=== PATIENT | female | born 1975 | race Caucasian/White ===

== ENCOUNTER 2017-06-01 09:20 | Emergency (ER) | payer OTHER ==
[~2017-06-01] VITALS: Ht 172.7 cm; Wt 92.4 kg
[~2017-06-01 09:20] MED LIST: CARV12.52 PO; IBUP-232 PO; LEVO200T4 PO; LISI-515 PO; NORC5TAB PO; ORPH100T99 PO
[2017-06-01 09:27] VITALS: BP 161/93; PULSE 134; RESP 16; TEMP 99.7; O2SAT 98
[2017-06-01] MEDS ORDERED: ZIPR1CAP12 PO (10:20)
--- NOTE | 2017-06-01 10:32 | PD ---
HPI Chief Complaint: Allergic/Adverse Reaction Time Seen by Provider: 10:17 Travel History International Travel<30 days: No Contact w/Intl Traveler<30days: No Traveled to known affect area: No History of Present Illness HPI 42-year-old female came to the emergency room with history of palpitations. Patient was started on Geodon little over a week ago and her symptoms I started since then. Patient has history of bipolar disorder and about 2-3 weeks ago was depressed and had overdosed on her medications. She had told her primary care after she had overdosed about this and she was sent to the therapist. She was started on Geodon at that point. She was tachycardic on the monitor in 1 teens. Patient denies drinking alcohol or doing any illicit drugs. She has been complaining of some chest discomfort since yesterday morning and has been continuous. Patient is not a smoker. She thinks all her symptoms are related to Geodon. Pain is substernal with no radiation. PFSH Past Medical History Narrative Medical List of her past medical, surgical, social and family history is reviewed from the nursing note. Asthma: No Autoimmune Disease: No Blood Disorders: No Heart Rhythm Problems: Yes (BBB) Cancer: No Cardiomyopathy: Yes (2004 POST- CARDIOMYOPATHY /W CHF- RESOLVED) Cardiovascular Problems: Yes (HX OF POST CARDIOMYOPATHY) High Cholesterol: No Chemotherapy: No Chest Pain: No Congestive Heart Failure: Yes COPD: No Diabetes: No Diminished Hearing: No Endocrine: No Glaucoma: No Genitourinary: No Hypertension: Yes Musculoskeletal: No Neurologic: No Psychiatric: No Respiratory: No Myocardial Infarction: No Radiation Therapy: No Thyroid Disease: Yes ?: Not : 1 Para: 1 Past Surgical History AICD: No Appendectomy: Yes Pacemaker: No Tonsillectomy: Yes Other Surgery: Yes (THYROIDECTOMY) Social History Alcohol Use: Yes (1 GLASS WINE WEEKLY) Tobacco Use: No Substance Use: No Allergies-Medications (Allergen,Severity, Reaction): Coded Allergies: pecan nut (Unverified Allergy, Severe, THROAT CLOSES UP, 06/01/17) Comments List of her allergies as reviewed from the nursing note. Reported Meds & Prescriptions Reported Meds & Active Scripts Active Reported Ziprasidone 80 Mg Cap 80 Mg PO DAILY Levothyroxine (Levothyroxine Sodium) 200 Mcg Tab 225 Mcg PO DAILY Carvedilol 12.5 Mg Tab 6.25 Mg PO BID Lisinopril 20 Mg Tab 20 Mg PO DAILY Narrative Medication List of her home medications reviewed from the nursing note. Review of Systems Except as stated in HPI: all other systems reviewed are Neg Physical Exam Narrative GENERAL: Awake, alert, anxious SKIN: Focused skin assessment warm/dry. HEAD: Atraumatic. Normocephalic. EYES: Pupils equal and round. No scleral icterus. No injection or drainage. ENT: No nasal bleeding or discharge. Mucous membranes pink and moist. NECK: Trachea midline. No JVD. CARDIOVASCULAR: Regular rate and rhythm. Tachycardia. No murmur appreciated. RESPIRATORY: No accessory muscle use. Clear to auscultation. Breath sounds equal bilaterally. GASTROINTESTINAL: Abdomen soft, non-tender, nondistended. Hepatic and splenic margins not palpable. MUSCULOSKELETAL: No obvious deformities. No clubbing. No cyanosis. No edema. NEUROLOGICAL: Awake and alert. No obvious cranial nerve deficits. Motor grossly within normal limits. Normal speech. PSYCHIATRIC: Appropriate mood and affect; insight and judgment normal. Data Data Last Documented VS Orders Orders Electrocardiogram (06/01/17 ) Complete Blood Count With Diff (06/01/17 10:37) Basic Metabolic Panel (Bmp) (06/01/17 10:37) Troponin I (06/01/17 10:37) Urinalysis - C+S If Indicated (06/01/17 10:37) Thyroid Stimulating Hormone (06/01/17 10:37) Aspirin Chew (Aspirin Chew) (06/01/17 10:45) Lorazepam (Ativan) (06/01/17 10:45) Packaging Tech / Telemetry MANDY.Q8H (06/01/17 10:37) Urine Culture (06/01/17 10:55) Labs Laboratory Tests Test 06/01/17 10:35 06/01/17 10:55 White Blood Count 7.5 TH/MM3 Red Blood Count 4.62 MIL/MM3 Hemoglobin 13.4 GM/DL Hematocrit 40.4 % Mean Corpuscular Volume 87.4 FL Mean Corpuscular Hemoglobin 28.9 PG Mean Corpuscular Hemoglobin Concent 33.1 % Red Cell Distribution Width 11.9 % Platelet Count 209 TH/MM3 Mean Platelet Volume 7.2 FL Neutrophils (%) (Auto) 79.9 % Lymphocytes (%) (Auto) 12.5 % Monocytes (%) (Auto) 6.1 % Eosinophils (%) (Auto) 0.9 % Basophils (%) (Auto) 0.6 % Neutrophils # (Auto) 6.0 TH/MM3 Lymphocytes # (Auto) 0.9 TH/MM3 Monocytes # (Auto) 0.5 TH/MM3 Eosinophils # (Auto) 0.1 TH/MM3 Basophils # (Auto) 0.0 TH/MM3 CBC Comment DIFF FINAL Differential Comment Blood Urea Nitrogen 12 MG/DL Creatinine 0.72 MG/DL Random Glucose 113 MG/DL Calcium Level 9.1 MG/DL Sodium Level 139 MEQ/L Potassium Level 3.9 MEQ/L Chloride Level 106 MEQ/L Carbon Dioxide Level 24.7 MEQ/L Anion Gap 8 MEQ/L Estimat Glomerular Filtration Rate 90 ML/MIN Troponin I LESS THAN 0.02 NG/ML Thyroid Stimulating Hormone 3rd Gen 0.885 uIU/ML Urine Collection Type CLEAN CATCH Urine Color YELLOW Urine Turbidity CLEAR Urine pH 6.0 Urine Specific Coyle 1.018 Urine Protein NEG mg/dL Urine Glucose (UA) NEG mg/dL Urine Ketones NEG mg/dL Urine Occult Blood NEG Urine Nitrite NEG Urine Bilirubin NEG Urine Leukocyte Esterase NEG Urine WBC 0-2 /hpf Urine Squamous Epithelial Cells 6-8 /hpf Urine Bacteria MOD /hpf Microscopic Urinalysis Comment CULTURE INDICATED Urine Collection Time 10:55 MDM Medical Decision Making Medical Screen Exam Complete: Yes Emergency Medical Condition: Yes Medical Record Reviewed: Yes Interpretation(s) Twelve-lead EKG was reviewed by me. Left bundle branch block. Left axis deviation. Tachycardia. Heart rate of 10 2 bpm. EKG is unchanged from 2009 Differential Diagnosis Side effect of Geodon, ACS, hyperthyroidism Narrative Course 11:45 AM blood test results are back and within acceptable limits including her troponin and TSH. Patient was given by mouth 1 mg of Ativan. She feels better. At this point I we'll ask her to stop taking the Geodon and talked to her therapist about it. Patient continues to say she is not suicidal currently. She said she feels safe gong home. Her friend validated to that. I' ll discharge her home. Procedures EKG Prior to Arrival: No Diagnosis Primary Impression: Medication side effect Qualified Codes: T88.7XXA - Unspecified adverse effect of drug or medicament, initial encounter Additional Impression: Palpitations Referrals: Primary Care Physician 2 days Additional Instructions: Please follow-up with your primary care next couple days. If your primary care can arrange for an outpatient stress test that would be ideal. Return to the ER if the condition worsens or any other new concerns. He should stop taking your Geodon. Contact your psychiatrist regarding that as well. Disposition: 01 DISCHARGE HOME Condition: Stable Canelo Pal MD Jun 01, 2017 10:32
[2017-06-01] MEDS ORDERED: LORazepam 1 MG TAB PO ONE (10:45)
[2017-06-01] MEDS ORDERED: ASPIRIN 81 MG CHEW TAB CHEW ONE (10:45)
[2017-06-01 11:06] VITALS: BP 139/82; PULSE 115; RESP 20; O2SAT 98
[2017-06-01 11:10] LABS: BLOOD, URINE NEG (NEG); GLUCOSE,URINE NEG (NEG); KETONE, URINE NEG (NEG); NITRITE,URINE NEG (NEG)
[2017-06-01 11:11] LABS: BASOPHIL % 0.6 % (0.0-2.0); EOSINOPHIL # 0.1 TH/MM3 (0-0.4); EOSINOPHIL % 0.9 % (0.0-4.0); HEMATOCRIT 40.4 % (35.0-46.0); HEMO FLAGS DIFF FINAL; LYMPH % 12.5 % (9.0-44.0); LYMPHOCYTE # 0.9 TH/MM3 (1.0-4.8); MEAN CELL VOLUME 87.4 FL (80.0-100.0); MEAN CORPUSCULAR HEMOGLOBIN 28.9 PG (27.0-34.0); MEAN CORPUSCULAR HGB CONC 33.1 % (32.0-36.0); MONO % 6.1 % (0.0-8.0); NEUT % 79.9 % (16.0-70.0); PLATELET COUNT 209 TH/MM3 (150-450); RED BLOOD COUNT 4.62 MIL/MM3 (4.00-5.30); RED CELL DISTRIBUTION WIDTH 11.9 % (11.6-17.2); WHITE BLOOD COUNT 7.5 TH/MM3 (4.0-11.0)
[2017-06-01 11:14] LABS: METHOD OF COLLECTION CLEAN CATCH; URINE COLOR YELLOW (YELLW/STRAW)
[2017-06-01 11:15] LABS: CHLORIDE 106 MEQ/L (98-107); POTASSIUM 3.9 MEQ/L (3.5-5.1); SODIUM (NA) 139 MEQ/L (136-145)
[2017-06-01 11:15] LABS: BACTERIA, URINE MOD /hpf; WBC, URINE 0-2 /hpf (0-5)
[2017-06-01 11:16] LABS: COMMENT (UR) CULTURE INDICATED; CULTURE IF INDICATED CULTURE INDICATED
[2017-06-01 11:18] LABS: ANION GAP 8 MEQ/L (5-15); BICARBONATE 24.7 MEQ/L (21.0-32.0); BLOOD UREA NITROGEN 12 MG/DL (7-18)
[2017-06-01 11:21] LABS: GLOMERULAR FILTRATION RATE 90 ML/MIN (>89)
--- NOTE | 2017-06-01 14:31 | EKG ---
Date Performed: 06/01/2017 Time Performed: 10:46:10 PTAGE: 42 years EKG: SINUS TACHYCARDIA LEFT BUNDLE BRANCH BLOCK ABNORMAL ECG PREVIOUS TRACING : 03/04/2008 00.57 Compared to prior tracing no significant change DOCTOR: Shiv Villagran Interpretating Date/Time 06/01/2017 14:29:44
== END 2017-06-01 12:10 | disposition home or self-care (01) ==
LOC: PHED 09:20
DX: T88.7XXA Unspecified adverse effect of drug or medicament, initial encounter (principal); R00.2 Palpitations; R07.89 Other chest pain; R94.31 Abnormal electrocardiogram [ECG] [EKG]; R82.99 Other abnormal findings in urine; I10 Essential (primary) hypertension; E07.9 Disorder of thyroid, unspecified; Z86.79 Personal history of other diseases of the circulatory system
CPT/HCPCS: 80048; 81001; 84443; 84484; 85025; 87086; 93005; 99284

== ENCOUNTER 2017-08-19 08:31 | Emergency (ER) | payer OTHER ==
[~2017-08-19] VITALS: Ht 172.7 cm; Wt 95.1 kg
[~2017-08-19 08:31] MED LIST changes: -IBUP-232 PO; -NORC5TAB PO; -ORPH100T99 PO; +ZIPR1CAP12 PO
[2017-08-19 08:32] VITALS: BP 142/66; PULSE 106; RESP 16; TEMP 98.9; O2SAT 98
[2017-08-19] MEDS ORDERED: IBUPROFEN 600 MG TAB PO ONE (09:00)
--- NOTE | 2017-08-19 09:04 | PD ---
HPI Chief Complaint: Skin Problem Time Seen by Provider: 08:41 Travel History International Travel<30 days: No Contact w/Intl Traveler<30days: No Traveled to known affect area: No History of Present Illness HPI 42yo F with PMH of bipolar disorder, hypothyroidism presents to the ED with c/o 2 bites since Tuesday. She noticed a red bump on her right buttocks and then right abdomen and thinks she may have been bitten by a spider. Said she felt warm but no documented fever. There is pain localized to the surrounding areas of the bite ochoa as well as erythema from the bite octavio. Denies any chest pain , sob, n/v, abdominal pain, focal weakness or numbness. PFSH Past Medical History Asthma: No Autoimmune Disease: No Blood Disorders: No Heart Rhythm Problems: Yes (BBB) Cancer: No Cardiomyopathy: Yes (2003 POST- CARDIOMYOPATHY /W CHF- RESOLVED) Cardiovascular Problems: Yes (HX OF POST CARDIOMYOPATHY) High Cholesterol: No Chemotherapy: No Chest Pain: No Congestive Heart Failure: Yes COPD: No Diabetes: No Diminished Hearing: No Endocrine: No Glaucoma: No Genitourinary: No Hypertension: Yes Musculoskeletal: No Neurologic: No Psychiatric: No Respiratory: No Myocardial Infarction: No Radiation Therapy: No Thyroid Disease: Yes ?: Not : 1 Para: 1 Past Surgical History AICD: No Appendectomy: Yes Pacemaker: No Tonsillectomy: Yes Other Surgery: Yes (THYROIDECTOMY) Social History Alcohol Use: Yes (1 GLASS WINE WEEKLY) Tobacco Use: No Substance Use: No Allergies-Medications (Allergen,Severity, Reaction): Coded Allergies: pecan nut (Unverified Allergy, Severe, THROAT CLOSES UP, 08/19/17) Reported Meds & Prescriptions Reported Meds & Active Scripts Active Tylenol (Acetaminophen) 325 Mg Tab 650 Mg PO Q6H PRN Keflex (Cephalexin) 500 Mg Cap 500 Mg PO Q12H 7 Days Reported Ziprasidone 80 Mg Cap 80 Mg PO DAILY Levothyroxine (Levothyroxine Sodium) 200 Mcg Tab 225 Mcg PO DAILY Carvedilol 12.5 Mg Tab 6.25 Mg PO BID Lisinopril 20 Mg Tab 20 Mg PO DAILY Review of Systems Except as stated in HPI: all other systems reviewed are Neg Physical Exam Narrative GENERAL: 42yo F not in distress. SKIN: Focused skin assessment warm/dry. HEAD: Atraumatic. Normocephalic. EYES: Pupils equal and round. No scleral icterus. No injection or drainage. ENT: No nasal bleeding or discharge. Mucous membranes pink and moist. NECK: Trachea midline. No JVD. CARDIOVASCULAR: Regular rate and rhythm. No murmur appreciated. RESPIRATORY: No accessory muscle use. Clear to auscultation. Breath sounds equal bilaterally. GASTROINTESTINAL: Abdomen soft, non-tender, nondistended. +1cm superficial ulceration that may have been a bite octavio with 12cm by 6cm erythema. No induration or fluctuance. +1cm superficial ulceration in right gluteus with surrounding erythema and induration with mild ttp. No fluctuance. MUSCULOSKELETAL: No obvious deformities. No clubbing. No cyanosis. No edema. NEUROLOGICAL: Awake and alert. No obvious cranial nerve deficits. Motor grossly within normal limits. Normal speech. PSYCHIATRIC: Appropriate mood and affect; insight and judgment normal. Data Data Last Documented VS Vital Signs Date Time Temp Pulse Resp B/P (MAP) Pulse Ox O2 Delivery O2 Flow Rate FiO2 08/19/17 09:48 92 16 08/19/17 08:32 98.9 142/66 (91) 98 Orders Orders Ed Urine Pregnancytest Poc (08/19/17 08:57) Ibuprofen (Motrin) (08/19/17 09:00) Sulfamet-Trimeth Ds 800-160 Mg (Bactrim (08/19/17 10:00) Ed Discharge Order (08/19/17 10:04) MDM Medical Decision Making Medical Screen Exam Complete: Yes Emergency Medical Condition: Yes Differential Diagnosis Cellulitis vs. bug bite Narrative Course 42yo well appearing female here with what appears to be bug bites with surrounding cellulitis. There is some induration in the one in right gluteus. I wanted to do a CT scan to evaluate if there is deeper infection but pt is refusing the CT scan because she does not have good insurance and does not want to pay for it. Pt is nontoxic appearing and has not tried outpatient therapy yet. Instructed pt to return to the ED if the redness or pain increases while she is on antibiotics. negative. Pt given ibuprofen and bactrim and said pt has improve. Pt tolerating PO. Initially wanted to prescribe bactrim since it is free in [facility] but there are some interaction with [facility] so switched to keflex. Diagnosis Primary Impression: Cellulitis Qualified Codes: L03.317 - Cellulitis of buttock Patient Instructions: General Instructions Departure Forms: Tests/Procedures Additional Instructions: Please return to the ED immediately if your symptoms worsen. Med/Other Pt SpecificInfo: Prescription(s) given Scripts Acetaminophen (Tylenol) 325 Mg Tab 650 MG PO Q6H Y for PAIN SCALE 1 TO 4, #20 TAB 0 Refills Prov: Marjorie Zuluaga DO 08/19/17 Cephalexin (Keflex) 500 Mg Cap 500 MG PO Q12H for Infection for 7 Days, #14 CAP 0 Refills Prov: Marjorie Zuluaga DO 08/19/17 Disposition: 01 DISCHARGE HOME Condition: Stable Marjorie Zuluaga DO Aug 19, 2017 09:04
[2017-08-19 09:48] VITALS: PULSE 92; RESP 16
[2017-08-19] MEDS ORDERED: SULFAMETHOXAZOLE-TRIMETHOPRIM DS 800-160 MG TAB PO ONE (10:00)
[2017-08-19] MEDS ORDERED: CEPH-460 PO (10:03)
[2017-08-19] MEDS ORDERED: TYLE325T PO (10:03)
== END 2017-08-19 10:14 | disposition home or self-care (01) ==
LOC: PHED 08:31
DX: L03.317 Cellulitis of buttock (principal); I50.9 Heart failure, unspecified; I11.0 Hypertensive heart disease with heart failure
CPT/HCPCS: 84703; 99283

== ENCOUNTER 2017-08-24 18:32 | Emergency (ER) | payer OTHER ==
[~2017-08-24] VITALS: Ht 172.7 cm; Wt 94.7 kg
[~2017-08-24 18:32] MED LIST changes: +CEPH-460 PO; +TYLE325T PO
[2017-08-24 18:38] VITALS: BP 134/61; PULSE 70; RESP 18; TEMP 98.3; O2SAT 97
[2017-08-24] MEDS ORDERED: VANCOMYCIN INJ 1,000 MG in SODIUM CHLOR 0.9% 250 ML INJ 250 ML IV ONE (19:00)
--- NOTE | 2017-08-24 19:09 | PD ---
HPI Chief Complaint: Skin Problem Time Seen by Provider: 18:48 Travel History International Travel<30 days: No Contact w/Intl Traveler<30days: No Traveled to known affect area: No History of Present Illness HPI The patient was seen and examined in the presence of the nurse. This patient complains of her skin infections not getting any better. She's been taking Keflex. She has a lesion on her abdominal wall and one on her right buttock. She thinks they are spider bites but not sure. Denies fever. No alleviating factors. Severity is moderate. No exacerbating factors PFSH Past Medical History Asthma: No Autoimmune Disease: No Blood Disorders: No Heart Rhythm Problems: Yes (BBB) Cancer: No Cardiomyopathy: Yes (2003 POST- CARDIOMYOPATHY /W CHF- RESOLVED) Cardiovascular Problems: Yes (HX OF POST CARDIOMYOPATHY) High Cholesterol: No Chemotherapy: No Chest Pain: No Congestive Heart Failure: Yes COPD: No Diabetes: No Diminished Hearing: No Endocrine: No Glaucoma: No Genitourinary: No Hypertension: Yes Musculoskeletal: No Neurologic: No Psychiatric: No Respiratory: No Myocardial Infarction: No Radiation Therapy: No Thyroid Disease: Yes ?: Not LMP: 08/2017 : 1 Para: 1 Past Surgical History AICD: No Appendectomy: Yes Pacemaker: No Tonsillectomy: Yes Other Surgery: Yes (THYROIDECTOMY) Social History Alcohol Use: Yes (1 GLASS WINE WEEKLY) Tobacco Use: No Substance Use: No Allergies-Medications (Allergen,Severity, Reaction): Coded Allergies: pecan nut (Unverified Allergy, Severe, THROAT CLOSES UP, 08/24/17) Reported Meds & Prescriptions Reported Meds & Active Scripts Active Tylenol (Acetaminophen) 325 Mg Tab 650 Mg PO Q6H PRN Keflex (Cephalexin) 500 Mg Cap 500 Mg PO Q12H 7 Days Reported Ziprasidone 80 Mg Cap 80 Mg PO DAILY Levothyroxine (Levothyroxine Sodium) 200 Mcg Tab 225 Mcg PO DAILY Carvedilol 12.5 Mg Tab 6.25 Mg PO BID Lisinopril 20 Mg Tab 20 Mg PO DAILY Review of Systems General / Constitutional: No: Fever Eyes: No: Visual changes HENT: No: Headaches Cardiovascular: No: Chest Pain or Discomfort Respiratory: No: Shortness of Breath Gastrointestinal: No: Abdominal Pain Genitourinary: No: Dysuria Musculoskeletal: Positive: Pain Skin: No Rash Neurologic: No: Weakness Psychiatric: No: Depression Endocrine: No: Polydipsia Hematologic/Lymphatic: No: Easy Bruising Physical Exam Narrative GENERAL: Well-nourished, well-developed patient in no apparent distress. SKIN: Focused skin assessment reveals no rash and nodules. Skin is Warm and dry. There is a ulcerative lesion on the right buttock. There is some blackish eschar there, similar to the abdominal wall. There is a slight yellowish drainage, culture was obtained. There is an area of induration. It is marked off in marking pen and is identical to the prior line HEAD: Atraumatic. Normocephalic. EYES: Pupils equal and round. No scleral icterus. No injection or drainage. ENT: No nasal bleeding or discharge. Mucous membranes pink and moist. NECK: Trachea midline. No JVD. CARDIOVASCULAR: Regular rate and rhythm. No murmur appreciated. RESPIRATORY: No accessory muscle use. Clear to auscultation. Breath sounds equal bilaterally. GASTROINTESTINAL: Abdomen soft, non-tender, nondistended. Hepatic and splenic margins not palpable. There is a 1 cm x 1 cm ulcer on the abdominal wall. There is some black eschar. No fluctuance or drainage. There is just a slight ring of erythema. MUSCULOSKELETAL: No obvious deformities. No clubbing. No cyanosis. No edema. NEUROLOGICAL: Awake and alert. No obvious cranial nerve deficits. Motor grossly within normal limits. Normal speech. PSYCHIATRIC: Appropriate mood and affect; insight and judgment normal. Data Data Last Documented VS Vital Signs Date Time Temp Pulse Resp B/P (MAP) Pulse Ox O2 Delivery O2 Flow Rate FiO2 08/24/17 18:38 98.3 70 18 134/61 (85) 97 Orders Orders Vancomycin Inj (Vancomycin Inj) (08/24/17 19:00) Wound Culture And Gram Stain (08/24/17 18:59) [facility] Medical Decision Making Medical Screen Exam Complete: Yes Emergency Medical Condition: Yes Medical Record Reviewed: Yes Differential Diagnosis Cellulitis, spider bite, necrotic ulcer Narrative Course I have reviewed the patient's electronic medical record. I reviewed her emergency evaluation from a few days ago My biggest concern would be an MRSA skin infection here. Keflex will not cover this. When she is not improving. IV placed I gave her 1 g IV vancomycin Going to change her antibiotics to clindamycin and doxycycline If she is not improved in a couple of days she'll come back and we may need to consider failure of treatment and IV antibiotics in the hospital Nothing to incise and drain at this point Diagnosis Primary Impression: Cellulitis of buttock, right Additional Impression: Abdominal wall cellulitis Additional Instructions: The patient was advised to follow up with their physician and return if they worsen. Med/Other Pt SpecificInfo: Prescription(s) given Disposition: 01 DISCHARGE HOME Condition: Stable Jean Claude Carrillo MD Aug 24, 2017 19:08
[2017-08-24] MEDS ORDERED: CLIN150C14 PO (19:12)
[2017-08-24] MEDS ORDERED: DOXY100C PO (19:12)
[2017-08-24] MEDS ORDERED: LORA-475 PO (21:06)
[2017-08-24] MEDS ORDERED: ZOLO100T PO (21:06)
[2017-08-24] MEDS ORDERED: IBUP1TAB7 PO (21:06)
[2017-08-24 21:13] VITALS: BP 128/62
== END 2017-08-24 21:15 | disposition home or self-care (01) ==
LOC: PHED 18:32
DX: L03.317 Cellulitis of buttock (principal); L03.311 Cellulitis of abdominal wall; B95.62 Methicillin resistant Staphylococcus aureus infection as the cause of diseases classified elsewhere; Z16.23 Resistance to quinolones and fluoroquinolones; Z16.11 Resistance to penicillins; Z16.19 Resistance to other specified beta lactam antibiotics; Z16.29 Resistance to other single specified antibiotic
CPT/HCPCS: 86403; 87070; 87186; 96365; 99284; J3370; J7050; 87205